=== PATIENT | female | born 1970 | race Caucasian/White ===

== ENCOUNTER → 2023-09-21 12:00 | Outpatient (REF) | payer BC, SELFPAY | LOC: DHSLP 12:00 | PROVIDERS: ATTENDING PHYSICIAN Internal Medicine; FAMILY PHYSICIAN Nurse Practitioner Family | DX: G47.19 Other hypersomnia (principal); G47.8 Other sleep disorders; R06.83 Snoring | CPT/HCPCS: 95800 ==

== ENCOUNTER → 2024-03-01 10:55 | Outpatient (REF) | payer BC, SELFPAY | LOC: WDC 10:55 | PROVIDERS: ATTENDING PHYSICIAN Obstetrics & Gynecology Gynecology; FAMILY PHYSICIAN Nurse Practitioner Family | DX: Z12.31 Encounter for screening mammogram for malignant neoplasm of breast (principal) | CPT/HCPCS: 77063; 77067 ==

== ENCOUNTER → 2024-07-31 12:55 | Outpatient (REF) | payer BC, SELFPAY | LOC: WDC 12:55 | PROVIDERS: ATTENDING PHYSICIAN Obstetrics & Gynecology Gynecology; FAMILY PHYSICIAN Nurse Practitioner Family | DX: R92.2 Inconclusive mammogram (principal) | CPT/HCPCS: 76641 ==

== ENCOUNTER 2024-09-02 18:42 | Emergency (ER) | payer BC, SELFPAY ==
[2024-09-02 18:48] VITALS: BP 139/77
[2024-09-02 19:14] LABS: Hematocrit 39.9 % (37.0-47.0); Hemoglobin 13.5 g/dL (12.0-16.0); Mean Corp Hgb Conc. 33.8 g/dL (33.0-37.0); Mean Corpuscular Volume 86.4 fL (81.0-99.0); Nucleated Red Blood Cells % 0 %; Platelet Count 247 10^3/uL (130-400); Red Cell Dist. Width 13.2 % (11.5-14.5)
[2024-09-02 19:29] LABS: ALT (SGPT) 13 U/L (0-35); AST (SGOT) 19 U/L (14-36); Albumin 4.9 g/dl (3.5-5.0); Alkaline Phosphatase 91 U/L (38-126); Blood Urea Nitrogen 19 mg/dl (7-17); Calcium 9.6 mg/dl (8.4-10.2); Carbon Dioxide 28 mmol/L (22-30); Chloride 104 mmol/L (98-107); Glucose 94 mg/dl (70-99); Lipase 144 U/L (23-300); Potassium 4.0 mmol/L (3.5-5.1); Sodium 138 mmol/L (135-145); Total Protein 8.0 g/dl (6.3-8.2); eGFR > 60.00
[2024-09-02 21:51] VITALS: BP 124/72; BMI 29.6
[2024-09-02] MEDS: ZOFRAN 4 MG IV (21:54)
[2024-09-02] MEDS: NSS 1000 IV (21:55)
[2024-09-02] MEDS: DILAUDID 0.5 MG IV (21:55)
[2024-09-02] MEDS: OMNIPAQUE 50 ML PO (21:56)
[2024-09-02 22:19] LABS: C-Reactive Protein 7.70 mg/L (0.0-10.00)
--- NOTE | 2024-09-02 22:46 | ED.GENMED ---
History of Present Illness
General
Chief Complaint: Abdominal Symptoms
Source: patient, previous radiology exam and previous hospital records
Exam Limitations: none
Time Seen by Provider: 09/02/24 21:04
Nursing documentation reviewed up to this point in time: agreed with
History of Present Illness
History of Present Illness:
54-year-old female history of Crohn's followed by Dr. Jairo Whitehead at [facility] presents with few days of bloating constipation on Linzess, not bleeding, no fevers feels nauseous, has had MR enterography's and colonoscopies none for a few years,
previously on Biologics none currently
Past History
Past History
ED Past Medical History: Other (Crohn's)
ED Past Surgical History: Appendectomy
Social History
Tobacco: Non-smoker
Alcohol: Occasional
Drug: None
Personal:
Living: with family
Employment: Employed
Review of Systems
Review of Systems
All Other Systems: Not applicable
Constitutional: Denies fever or fatigue
Respiratory: Reports no symptoms
Cardiac: Reports no symptoms
ABD/GI: Reports abdominal pain, nausea and constipated; Denies diarrhea or black stools
: Reports no symptoms
Phy Exam
Physical Exam
Physical Exam:
Physical Exam
General: no apparent distress, not acutely ill
Neck: No jaundice
Heart: s1/s2 regular rate and rhythm, no murmur. equal radial pulses.
Lungs: no acute respiratory distress. clear bilaterally
Abdomen: Soft mild diffuse tenderness with distention
Neuro: alert and oriented. no focal neurological deficits
Skin: no rash
Psychiatric: well kept. interactive and cooperative
Extremities: no edema.
Course
Orders/Labs/Results
Orders:
Orders
09/02/24 18:56
CR Obstruct Series W/pa Chest Urgent
Comment:
Reason For Exam: bloating, constipation
09/02/24 19:04
C-Reactive Protein Urgent
Comment: ADD ON
Complete Blood Count/With Diff Urgent
Comprehensive Metabolic Panel Urgent
Erythrocyte Sed Rate Urgent
Comment: ADD ON
Lipase Urgent
09/02/24 21:31
Add On- LAB Urgent
Tests Added?: esr/crp
Iohexol [Omnipaque] See Protocol PO NOW STA
09/02/24 21:32
CT Abd/pel W Iv And Oral Contr Urgent
Comment:
Reason For Exam: crhohms, bloating
0.9% Sodium Chloride 1000 ml [Nss] 1,000 ml IV BOLUS
HYDROmorphone [Dilaudid] 0.5 mg IV NOW STA
Ondansetron Injectable [Zofran] 4 mg IV NOW STA
09/03/24 01:50
Dicyclomine [Bentyl] 20 mg .ROUTE .STK-MED ONE
Ondansetron Injectable [Zofran] 4 mg .ROUTE .STK-MED ONE
09/03/24 02:04
Magnesium Citrate [Citroma] 300 ml .ROUTE .STK-MED ONE
Abnormal Lab Results
09/02/24
19:04
BUN 19 H mg/dl
(7-17)
09/02/24 19:04
09/02/24 19:04
Vital Signs
Initial and Last Documented VS:
Initial Vital Signs
Temp Pulse Resp BP Pulse Ox
98.0 F 63 16 139/77 98
09/02/24 18:48 09/02/24 18:48 09/02/24 18:48 09/02/24 18:48 09/02/24 18:48
Last Documented Vital Signs
Temp Pulse Resp BP Pulse Ox
98.0 F 65 16 124/72 100
09/02/24 18:48 09/02/24 21:51 09/02/24 21:51 09/02/24 21:51 09/02/24 22:48
*Pulse Oximetry
SaO2: 100
Oxygen Mode of Delivery: Room air
Patient hypoxic: no
*Critical Care Note
Total Time (30-74mins, 75-104mins- exclusive of procedures): Not Applicable
ED Attending Note
-
Portions of this chart may have been created with voice recognition software.� Occasional wrong word or��sound alike� substitutions may have occurred due to the inherent limitations of voice recognition software.
Discharge Plan
Departure
Patient Disposition: Home (Routine Discharge)
Date of Disposition: 09/02/24
Time of Disposition: 23:04
Patient with high blood pressure during this ER visit?: No
Covid-19: Not Applicable
Discharge Problem:
Abdominal pain
Instructions: Abdominal Pain
Prescriptions:
No Action
infliximab [Remicade] 100 MG/10 ML recon soln
1 dose IV .QEIGHT WEEKS
Patient Comments:
pt unsure of doseage.
propranolol 80 MG capsule,extended release 24 hr
80 mg PO DAILY
escitalopram oxalate 20 MG tablet
20 mg PO DAILY
ondansetron 4 MG tablet,disintegrating
4 mg PO TIDPRN PRN (Reason: nausea/vomiting) Qty: 12 0RF
Referrals:
Jer Horton CRNP [Family Provider, Family Practice]
Interventions
Interventions:
*Risk Screen - Suicide Last Done: 09/02/24 18:48
*General Assessment Last Done: 09/02/24 18:48
*Neglect/Abuse Screening Last Done: 09/02/24 18:48
*ED COVID-19 Vaccine History Last Done: 09/02/24 18:48
*Nursing Disposition Last Done: 09/03/24 02:08
MO-Zljhuy-Viintrgzds Assessment Last Done: 09/02/24 22:06
Discharge Date and Time
Discharge Date/Time: 09/03/24 02:08
Print Language: MALAGASY
--- NOTE | 2024-09-03 02:24 | DOWNTIME ---
There was a [facility] Client [employer] Downtime on 09/03/2024 from 0100 to 09/03/2024 at 0220. Downtime documentation of patient's care, including medication administrations, has been reconciled in the electronic record per guidelines. Refer to the
patient's paper chart under the miscellaneous tab to see printed paper medication records and downtime forms.
== END 2024-09-03 02:08 | disposition home or self-care (01) ==
LOC: EMR 18:42
PROVIDERS: EMERGENCY PHYSICIAN Emergency Medicine; FAMILY PHYSICIAN Nurse Practitioner Family
DX: R10.9 Unspecified abdominal pain (principal); K50.90 Crohn's disease, unspecified, without complications; Z90.49 Acquired absence of other specified parts of digestive tract
CPT/HCPCS: 99284; 96374; 96375; 96361; 74022; 74177; 80053; 83690; 85025; 85652; 86140; Q9967

== ENCOUNTER → 2024-09-27 13:50 | Outpatient (REF) | payer BC, SELFPAY | LOC: HWRAD 13:50 | PROVIDERS: ATTENDING PHYSICIAN Obstetrics & Gynecology Gynecology; FAMILY PHYSICIAN Nurse Practitioner Family; REFERRING PHYSICIAN Internal Medicine Gastroenterology | DX: N95.0 Postmenopausal bleeding (principal); K59.00 Constipation, unspecified | CPT/HCPCS: 74018; 76830; 76856 ==

== ENCOUNTER → 2025-01-23 14:19 | Outpatient (REF) | payer BC, SELFPAY | LOC: WDC 14:19 | PROVIDERS: ATTENDING PHYSICIAN Obstetrics & Gynecology Gynecology; FAMILY PHYSICIAN Nurse Practitioner Family | DX: R92.8 Other abnormal and inconclusive findings on diagnostic imaging of breast (principal) | CPT/HCPCS: 76642 ==

== ENCOUNTER → 2025-01-24 08:56 | Outpatient (REF) | payer BC, SELFPAY | LOC: HWRAD 08:56 | PROVIDERS: ATTENDING PHYSICIAN Nurse Practitioner Family | DX: M85.80 Other specified disorders of bone density and structure, unspecified site (principal) | CPT/HCPCS: 77080 ==

== ENCOUNTER → 2025-02-04 12:45 | Outpatient (REF) | payer BC, SELFPAY | LOC: HWRAD 12:45 | PROVIDERS: ATTENDING PHYSICIAN Internal Medicine Rheumatology; FAMILY PHYSICIAN Nurse Practitioner Family | DX: M54.89 Other dorsalgia (principal) | CPT/HCPCS: 72114; 72202 ==